=== PATIENT | female | born 1955 | race Caucasian/White ===

== ENCOUNTER 2017-06-24 15:33 | Inpatient (IN) | payer OTHER ==
--- NOTE | 2017-06-24 16:40 | EDPHY ---
H & P Time Seen by Provider: 06/24/17 16:26 HPI/ROS: CHIEF COMPLAINT: Left flank pain, nausea, vomiting HISTORY OF PRESENT ILLNESS: Patient is a 61-year-old female presents emergency department with left flank pain, nausea and vomiting. Patient states that she has had increasing left flank pain and went to [facility] or this morning. There she was diagnosed with a 6 mm left ureteral stone. She was discharged with a prescription of Flomax. She states that she was told "there is nothing more we can do"prior to her discharge. She still has significant pain. She states she is unable to keep any liquids or medicines down due to her nausea and vomiting. She denies fevers or chills. No dysuria frequency. REVIEW OF SYSTEMS: My complete review of systems is negative except as mentioned in the HPI. Past Medical/Surgical History: Includes fibromyalgia, back problems, coronary artery disease, hypertension Past surgical history: Denies Social history: Patient does not smoke Smoking Status: Never smoked Physical Exam: 36.8, 125/92, 80, 16, 95% on room air GENERAL: Moderate acute distress, alert. HEENT: Eyes normal to inspection, normal pharynx, no signs of dehydration. NECK: No thyromegaly, no lymphadenopathy, supple. RESPIRATORY: Clear to auscultation bilaterally, no rales, rhonchi or wheezing. CVS: Regular rate and rhythm, no rubs, murmurs, or gallops. ABDOMEN: Soft, nontender, nondistended, no organomegaly. BACK: Normal to inspection, no CVA tenderness. SKIN: Normal color, no rash, warm, dry. No pallor. EXTREMITIES: No pedal edema, no calf tenderness, no Homans sign or cords, no joint swelling. NEURO/PSYCH: Alert and oriented x3, normal mood and affect, normal motor sensory exam. No obvious cranial nerve deficit. Constitutional: Initial Vital Signs Temperature (C) 36.8 C 06/24/17 15:49 Heart Rate 88 06/24/17 15:49 Respiratory Rate 16 06/24/17 15:49 Blood Pressure 125/92 H 06/24/17 15:49 O2 Sat (%) 95 06/24/17 15:49 O2 Delivery Mode Nasal Cannula O2 (L/minute) 2 Allergies/Adverse Reactions: amoxicillin Allergy (Verified 06/24/17 15:48) atorvastatin [From Lipitor] Allergy (Verified 06/24/17 15:48) sertraline [From Zoloft] Allergy (Verified 06/24/17 15:47) Sulfa (Sulfonamide Antibiotics) Allergy (Verified 06/24/17 15:47) xanax Allergy (Uncoded 06/24/17 15:47) Home Medications: Medication Instructions Recorded Acetaminophen [Tylenol 325mg (*)] 325 - 650 mg PO Q6 PRN 06/24/17 Ascorbic Acid [Vitamin C 500 mg 500 mg PO DAILY 06/24/17 (*)] Atorvastatin Calcium [Lipitor 10 10 mg PO WESA 06/24/17 mg (*)] Ezetimibe [Zetia 10 MG (*)] 10 mg PO HS 06/24/17 Herbals/Supplements -Info Only 1 ea PO DAILY 06/24/17 Ibuprofen [Motrin (*)] 200 - 600 mg PO Q6H PRN 06/24/17 Lisinopril [Zestril 5 mg (*)] 5 mg PO BID 06/24/17 Medical Decision Making ED Course/Re-evaluation: In the emergency department I discussed possible etiologies with the patient and her . I reviewed the patient's medical record that they brought with them from [facility]. Her notable findings: CT of the abdomen pelvis: The patient has a 6 x 7 mm left ureteral stone with mild hydronephrosis. Patient's white count was 10. Hematocrit was 41. Platelets were 212. Patient' s chemistry panel showed sodium 136, potassium 3.2, chloride 99, bicarb 24, BUN 13, creatinine 1.01, glucose 110. Patient's LFTs showed AST of 47 and ALT of 35. T bili 0.8. Alk phos 83. Her UA showed positive red cells. I discussed case with Dr. Maldonado from urology. She will consult on the patient. - Data Points Medications Given: Discontinued Medications Fentanyl (Sublimaze) 100 mcg IVP EDNOW ONE Stop: 06/24/17 16:48 Last Admin: 06/24/17 17:03 Dose: 100 mcg Sodium Chloride (Ns) 1,000 mls @ 0 mls/hr IV EDNOW ONE; Wide Open PRN Reason: Protocol Stop: 06/24/17 16:48 Last Admin: 06/24/17 17:03 Dose: 1,000 mls Promethazine HCl (Phenergan) 12.5 mg IVP EDNOW ONE Stop: 06/24/17 16:48 Last Admin: 06/24/17 17:03 Dose: 12.5 mg Tamsulosin HCl (Flomax) 0.4 mg PO EDNOW ONE Stop: 06/24/17 16:48 Last Admin: 06/24/17 17:04 Dose: 0.4 mg Departure - Departure Disposition: [facility] Acute Clinical Impression: Ureterolithiasis, Renal colic on left side Condition: Good
[2017-06-24] MEDS ORDERED: NS 1,000 ML IV ONE (16:47)
[2017-06-24] MEDS ORDERED: fentaNYL 100 MCG/2 ML INJ IVP ONE (16:47)
[2017-06-24] MEDS ORDERED: TAMSULOSIN HCL 0.4 MG CAP PO ONE (16:47)
[2017-06-24] MEDS ORDERED: PROMETHAZINE HCL 25 MG/ML INJ IVP ONE (16:47)
[2017-06-24] MEDS ORDERED: PROMETHAZINE HCL 25 MG TAB PO PRN (17:42)
[2017-06-24] MEDS ORDERED: PROMETHAZINE HCL 25 MG/ML INJ IVP PRN (17:42)
[2017-06-24] MEDS ORDERED: ONDANSETRON DISINTEGRATING 4 MG TAB PO PRN (17:42)
[2017-06-24] MEDS ORDERED: ONDANSETRON 4 MG/2 ML VIAL IVP PRN (17:42)
[2017-06-24] MEDS ORDERED: NS 1,000 ML IV SCH (17:45)
--- NOTE | 2017-06-24 18:49 | PDGENHP ---
History and Physical - Chief Complaint Acute vomiting - History of Present Illness Primary care provider: Dr. Lela Louie HPI: 61-year-old female presenting with acute vomiting characterized as dry heaves with associated nausea and pain located in the left lower abdomen, with onset of symptoms on the day of presentation and rated as an 8/10 on a pain scale. Patient reports that it occurred in the context of vomiting and diarrhea with onset approximately 3 days ago and persistent worsening thereafter. She has had poor oral intakes of solids, trying to maintain good liquid intake, and the constellation of her symptoms seems to be exacerbating her anxiety and resulting in tremulousness. The patient presented to [facility] where she was diagnosed as having a left- sided kidney stone, and she was discharged home with Flomax, ibuprofen, her regular home pain medication and outpatient Urology follow-up. The patient reports that her symptoms continued to escalate at home and she has sought reassessment. Prior to onset of symptoms, the patient had otherwise been feeling well, had not been experiencing any exertional chest pain or reduced exercise tolerance. History Information - Allergies/Home Medication List Allergies/Adverse Reactions: amoxicillin Allergy (Verified 06/24/17 15:48) atorvastatin [From Lipitor] Allergy (Verified 06/24/17 15:48) sertraline [From Zoloft] Allergy (Verified 06/24/17 15:47) Sulfa (Sulfonamide Antibiotics) Allergy (Verified 06/24/17 15:47) xanax Allergy (Uncoded 06/24/17 15:47) Home Medications: Acetaminophen [Tylenol 325mg (*)] 325 - 650 mg PO Q6 PRN 06/24/17 [Last Taken ] Ascorbic Acid [Vitamin C 500 mg (*)] 500 mg PO DAILY 06/24/17 [Last Taken Unknown] Atorvastatin Calcium [Lipitor 10 mg (*)] 10 mg PO WESA 06/24/17 [Last Taken ] Ezetimibe [Zetia 10 MG (*)] 10 mg PO HS 06/24/17 [Last Taken 06/23/17] Herbals/Supplements -Info Only 1 ea PO DAILY 06/24/17 [Last Taken Unknown] Ibuprofen [Motrin (*)] 200 - 600 mg PO Q6H PRN 06/24/17 [Last Taken 06/24/17] Lisinopril [Zestril 5 mg (*)] 5 mg PO BID 06/24/17 [Last Taken 06/24/17] I have personally reviewed and updated: family history, medical history, social history, surgical history - Past Medical History fibromyalgia (With irritable bowel syndrome), hypertension, hyperlipidemia Additional medical history: Spinal stenosis with degenerative disc disease. JERO with CPAP - Surgical History Reports: no pertinent surgical hx - Family History Additional family history: Mother and sibling with kidney stones - Social History Smoking Status: Never smoked (Second-degree smoke exposure as a child) Alcohol Use: None Drug Use: None Additional social history: Independent in her ADLs Review of Systems Review of Systems: ROS: 10pt was reviewed & negative except for what was stated in HPI & below Constitutional: Reports: chills Gastrointestinal: Reports: vomitting, abdominal pain, diarrhea, nausea Physical Exam Physical Exam: Temp Pulse Resp BP Pulse Ox 36.9 C 83 20 136/85 H 95 06/24/17 18:36 06/24/17 18:36 06/24/17 18:36 06/24/17 18:36 06/24/17 18:36 O2 (L/minute) 2 Constitutional: uncomfortable, No not in pain (Moderate) Eyes: PERRL, anicteric sclera, EOMI Ears, Nose, Mouth, Throat: hearing normal, other (Tacky mucous membranes) Cardiovascular: regular rate and rhythym, no murmur, rub, or gallop, No edema Respiratory: no respiratory distress, no rales or rhonchi, clear to auscultation Gastrointestinal: normoactive bowel sounds, tenderness (Left lower quadrant), other (No CVA tenderness), No rebound, No distension Genitourinary: no bladder fullness, other (Suprapubic bladder tenderness) Skin: No abrasion, No rash Neurologic: AAOx3, sensation intact bilaterally, No weakness Psychiatric: not encephalopathic, thought process linear, anxious, other ( Visibly shaking), No agitated Assessment & Plan Assessment: 61-year-old female presenting with acutely obstructive uropathy Plan: 1. Obstructive uropathy. Acute, evidenced by 6-7 mm stone in the left proximal ureter resulting in mild to moderate acute hydronephrosis, CT scan from [facility] 06/24/17 reviewed, CT is available to up load in our system if needed by Urology -patient has failed conservative management with oral hydration, oral pain meds and Flomax, and she has sought reassessment for uncontrollable pain and inability to tolerate oral intake -start high rate IV fluids with lactated Ringer's 200 cc an hour -strain urine -symptomatic pain control with IV and oral Dilaudid, bowel regimen ordered -Flomax -monitor creatinine level -as needed IV Toradol -discussed with Dr. Malave in the emergency department, he reports to me that he will consult with Urology and will request cystoscopy in the a.m. If the patient does not pass the stone tonight, make NPO after midnight 2. Hypokalemia. Reviewed outside records including laboratory values from [facility], patient's potassium 3.2 -replete with lactated Ringer's, repeat a.m. 3. Fibromyalgia and irritable bowel syndrome. Patient with low threshold for abdominal pain symptoms, continue treat supportively 4. Hypertension. Chronic, hold MANULE-inhibitor the patient has obstructive kidney stone 5. Obstructive sleep apnea. Chronic, continue home CPAP Diet. Regular, NPO after midnight Prophylaxis. High risk patient, SCDs, hold pharm given procedure in a.m. Code. Full per patient, is MD JOHNSON Disposition. Anticipated discharge 06/25, pending surgical intervention and stabilization of situation in a.m..
[2017-06-24] MEDS: EZETIMIBE 10 MG TAB PO SCH (20:04)
[2017-06-24] MEDS: KETOROLAC 15 MG/1 ML SDV IVP PRN (20:05)
[2017-06-24] MEDS: POTASSIUM Cl (KCl) 20 MEQ in LR 1,000 ML IV SCH (22:17)
[2017-06-25] MEDS: KETOROLAC 15 MG/1 ML SDV IVP PRN ×2 (02:39→09:15)
[2017-06-25] MEDS: HYDROmorphONE/DILAUDID 1 MG/ML INJ IVP PRN ×2 (02:41→05:34)
[2017-06-25] MEDS: HYDROmorphONE/DILAUDID 2 MG TAB PO PRN ×2 (03:49→09:32)
[2017-06-25] MEDS: POTASSIUM Cl (KCl) 20 MEQ in LR 1,000 ML IV SCH ×2 (03:49→09:24)
[2017-06-25 04:40] LABS: PLATELET COUNT 157 10^3/uL (150-400)
[2017-06-25 04:48] LABS: INR 1.13 (0.83-1.16); PROTIME(PATIENT) 14.7 SEC (12.0-15.0)
[2017-06-25] MEDS ORDERED: Herbals/Supplements -Info Only PO SCH (09:00)
[2017-06-25] MEDS ORDERED: levOFLOXACIN 500 MG/DEXTROSE 100 ML IV ONE (09:08)
[2017-06-25] MEDS: ACETAMINOPHEN 325 MG TAB PO PRN ×2 (09:31→21:05)
[2017-06-25] MEDS: ASCORBIC ACID 500 MG TAB PO SCH (09:32)
--- NOTE | 2017-06-25 11:33 | PDANEPAE ---
ANE History of Present Illness L ureteroscopy ANE Past Medical History - Cardiovascular History Hx Hypertension: Yes Hx Coronary Artery / Peripheral Vascular Disease: Yes - Pulmonary History Hx Oxygen in Use at Home: No Hx Sleep Apnea: Yes Sleep Apnea Screening Result - Last Documented: Positive - Endocrine History Hx Diabetes: No - Renal History Hx Renal Disorders: Yes - Chronic Pain History Chronic Pain: Yes (fibtomayalgia) ANE Review of Systems Review of systems is: negative Review of Systems: - Exercise capacity Exercise capacity: unable to assess ANE Patient History - Allergies Allergies/Adverse Reactions: amoxicillin Allergy (Verified 06/24/17 15:48) atorvastatin [From Lipitor] Allergy (Verified 06/24/17 15:48) sertraline [From Zoloft] Allergy (Verified 06/24/17 15:47) Sulfa (Sulfonamide Antibiotics) Allergy (Verified 06/24/17 15:47) xanax Allergy (Uncoded 06/24/17 15:47) - Home Medications Home medications: home medication list seen and reviewed Home Medications: Acetaminophen [Tylenol 325mg (*)] 325 - 650 mg PO Q6 PRN 06/24/17 [Last Taken ] Ascorbic Acid [Vitamin C 500 mg (*)] 500 mg PO DAILY 06/24/17 [Last Taken Unknown] Atorvastatin Calcium [Lipitor 10 mg (*)] 10 mg PO WESA 06/24/17 [Last Taken ] Ezetimibe [Zetia 10 MG (*)] 10 mg PO HS 06/24/17 [Last Taken 06/23/17] Herbals/Supplements -Info Only 1 ea PO DAILY 06/24/17 [Last Taken Unknown] Ibuprofen [Motrin (*)] 200 - 600 mg PO Q6H PRN 06/24/17 [Last Taken 06/24/17] Lisinopril [Zestril 5 mg (*)] 5 mg PO BID 06/24/17 [Last Taken 06/24/17] - NPO status NPO Status: no food or drink >8 hours NPO Since - Liquids (Date): 06/25/17 NPO Since - Liquids (Time): 00:00 NPO Since - Solids (Date): 06/25/17 NPO Since - Solids (Time): 00:00 - Anes Hx Anes Hx: no prior problems - Smoking Hx Smoking Status: Never smoked - Alcohol Use Alcohol Use: None - Family Anes Hx Family Anes Hx: none ANE Labs/Vital Signs - Labs Result Diagrams: 06/25/17 04:26 06/25/17 04:26 - Vital Signs Blood Pressure: 125/76 Heart Rate: 86 Respiratory Rate: 16 O2 Sat (%): 93 Height: 160.02 cm Weight: 73.346 kg ANE Physical Exam - Airway Neck exam: FROM Mallampati Score: Class 3 Mouth exam: normal dental/mouth exam - Pulmonary Pulmonary: no respiratory distress - Cardiovascular Cardiovascular: regular rate and rhythym - ASA Status ASA Status: III ANE Anesthesia Plan Anesthesia Plan: GA w LMA
[2017-06-25] MEDS ORDERED: SENNOSIDES/DOCUSATE SODIUM TAB PO PRN (11:40)
[2017-06-25] MEDS ORDERED: OXYCODONE/APAP 5/325 TAB PO PRN (11:40)
[2017-06-25] MEDS ORDERED: TAMSULOSIN HCL 0.4 MG CAP PO SCH ×2 (11:45→21:00)
[2017-06-25] MEDS ORDERED: IOPAMIDOL (ISOVUE-M 300) 15 ML VIAL ONE (11:58)
[2017-06-25] MEDS ORDERED: LIDOCAINE 2% JELLY 20 ML (UROJECT) ONE (11:58)
[2017-06-25] MEDS ORDERED: OPIUM/BELLADONNA ALKALO SUPP PR ONE (12:04)
--- NOTE | 2017-06-25 12:09 | PDCONSULT ---
Bilingual Spanish Inbound Sales Note: RFC L obs ureteral stone HPI 61F w fibromyalgia, HTN, HLD presents w nausea/emesis/left flank pain for 2 days , anorexia. CT at [facility] - I personally reviewed - has contrast but clearly left proximal ureteral stone, associated hydro, 6mm. DC from [facility] ER yesterday w instructions to follow up w urology, but sx above persisted. Admitted overnight w good nausea/pain control on meds. Desires intervention. Concerned about posto pain. Asks about ESWL. ROS 10pt was reviewed & negative except for what was stated in HPI. - Past Medical History fibromyalgia (With irritable bowel syndrome), hypertension, hyperlipidemia Additional medical history: Spinal stenosis with degenerative disc disease. JERO with CPAP - Surgical History Reports: no pertinent surgical hx - Family History Additional family history: Mother and sibling with kidney stones - Social History Smoking Status: Never smoked (Second-degree smoke exposure as a child) Alcohol Use: None Drug Use: None Additional social history: Independent in her ADLs PE AFVSS Gen NAD A*O CV regular Lungs normal effort Abd soft Ext Warm Skin normal, not diaphoretic Labs reviewed - UA from [facility] normal, without sign of infection. Serum WBC normal, Serum Cr normal. A/P Left proximal stone, symptomatic, desires intervention. Discussed laser lithotripsy vs stent today and ESWL later. She does not want stent longer than necessary and chooses laser lithotripsy. Discussed risks of bleeding, infection, pain, stent discomfort, need for short term lam, small risk of inability to gain access to stone which would then result in subsequent procedures, injury to surrounding tissues including urethra , ureter, kidney, bladder. She understood the benefit of stone treatment outweight any risks and agrees to proceed. Consent received. Levaquin abx started.
[2017-06-25] MEDS ORDERED: MIDAZOLAM 2 MG/2 ML VIAL IVP ONE (12:14)
[2017-06-25] MEDS ORDERED: MIDAZOLAM 2 MG/2 ML VIAL ONE (12:18)
[2017-06-25] MEDS ORDERED: DEXAMETHASONE 4 MG/ML VIAL ONE (12:24)
[2017-06-25] MEDS ORDERED: LIDOCAINE 2% 100 MG/5 ML SYR ONE (12:24)
[2017-06-25] MEDS ORDERED: ONDANSETRON 4 MG/2 ML VIAL ONE (12:24)
[2017-06-25] MEDS ORDERED: fentaNYL 100 MCG/2 ML INJ ONE (12:24)
[2017-06-25] MEDS ORDERED: PROPOFOL 200 MG/20 ML VIAL ONE (12:24)
[2017-06-25] MEDS ORDERED: fentaNYL 100 MCG/2 ML INJ IVP PRN (12:46)
[2017-06-25] MEDS ORDERED: PROMETHAZINE HCL 25 MG/ML INJ IVP PRN (12:46)
[2017-06-25] MEDS ORDERED: ACETAMINOPHEN 500 MG TAB PO PRN (12:46)
[2017-06-25] MEDS ORDERED: MEPERIDINE 25 MG/ML SYR IVP PRN (12:46)
[2017-06-25] MEDS ORDERED: ONDANSETRON 4 MG/2 ML VIAL IVP PRN (12:46)
[2017-06-25] MEDS ORDERED: NALOXONE HCL 0.4 MG/ML INJ IVP PRN (12:46)
[2017-06-25] MEDS ORDERED: DEXAMETHASONE 4 MG/ML VIAL IVP PRN (12:46)
--- NOTE | 2017-06-25 12:48 | POSTANESTH ---
Post Anesthetic Evaluation Cardiovascular Status: Similar to Pre-Op Cond Respiratory Status: Similar to Pre-op Cond. Level of Consciousness/Mental Status: Can Participate in Eval, Moderately Sleepy Pain Control: Adequate, Prn Tx Ordered Nausea/Vomiting Control: Adequate, Prn Tx Ordered Complications Possibly Related to Anesthesia: None Noted
[2017-06-25] MEDS ORDERED: PHENYLEPHRINE HCL 100 MCG/ML SYR ONE (13:12)
--- NOTE | 2017-06-25 13:55 | HOSPPROG ---
Hospitalist Progress Note Assessment/Plan: Patient patient is a 61-year-old female who presented the emergency room with abdominal pain, nausea, and dry heaves. She was recently seen at [facility]. At that time she was diagnosed of having a left kidney stone. She was discharged home with treatment and told to follow up. But her symptoms worsened she came to the emergency room for further evaluation. * left kidney stone in the proximal ureter -patient has mild to moderate hydronephrosis -she has felt conservative management -appreciate Dr Maldonado -she is status post left laser stone ablation. Because of the stenotic nature of the left ureter not all the stone was removed. She will need follow-up with the urologist in approximately week and half * small bladder tumor -this was an incidental finding during this procedure, awaiting pathology * significant nausea -dry heaving after procedure -getting antiemetics * hypokalemia -stable * Fibromyalgia and irritable bowel syndrome -no complaints * Hypertension. Chronic, hold MANUEL-inhibitor. * Obstructive sleep apnea. Chronic, continue home CPAP *Plan: patient is unable to take in adequate fluids, hydration or food at this time. She will require another midnight stay. She will likely be ready for dc in the morning. Reviewed her plan of care with her , Roberto. Reviewed her care w Dr Melyssa Maldonado. Subjective: [place] said pain on left side is better, but is very nauseous. Objective: Vital Signs Temp Pulse Resp BP Pulse Ox 36.8 C 86 16 125/76 H 93 06/25/17 12:07 06/25/17 12:14 06/25/17 12:14 06/25/17 12:14 06/25/17 12:14 Laboratory Results 06/25/17 04:26 06/25/17 04:26 06/24/17 06/25/17 06/26/17 05:59 05:59 05:59 Intake Total 1000 Output Total 950 Balance 50 PT 14.7 SEC (12.0-15.0) 06/25/17 04:26 INR 1.13 (0.83-1.16) 06/25/17 04:26 - Physical Exam Constitutional: not in pain Eyes: PERRL Ears, Nose, Mouth, Throat: hearing normal Cardiovascular: regular rate and rhythym Respiratory: no respiratory distress Gastrointestinal: normoactive bowel sounds Skin: warm, No normal color (pale) Musculoskeletal: full muscle strength Neurologic: other (just up from procedure, answers questions appropriately) Psychiatric: interacting appropriately ICD10 Worksheet Patient Problems: Problems Problem Status Onset Renal colic on left side Acute Ureterolithiasis Acute
--- NOTE | 2017-06-25 14:53 | POSTOPPROG ---
Post Op Note Date of Operation: 06/25/17 Surgeon: Melyssa Maldonado Ingredient Mixer: None Anesthesia: GET(General Endotracheal) Pre-op Diagnosis: left ureteral stone Post-op Diagnosis: left ureteral stone, bladder tumor Indication: symptomatic left ureteral stone Procedure: cysto, TURBT, left URS, laser, stent Findings: small bladder tumor, left UPJ stenosis, left stone Inf/Abcess present in the surg proc area at time of surgery?: No Depth: Organ Space (urinray) EBL: Minimal Complications: none, patient tolerated well
--- NOTE | 2017-06-25 15:50 | PDMN ---
Medical Necessity Medical necessity: C/M review: est. > 2 MN LOS for eval and TX of acute left kidney stone in the proximal ureter, mild to moderate hydronephrosis, small bladder tumor incidental finding during 06/25/2017 surgical procedure - pathology results pending, significant postop nausea, dry heaving postop, inability to tolerate adequate oral fluids, food, hydration postop, hypokalemia - stable requiring 06/25/2016 surgery - left kidney stone laser ablation, because of the stenotic nature of the left ureter, not all the stone was removed , ongoing IV fluids, IV antiemetics, continue home CPAP, comorbid fibromyalgia, hypertension, chronic obstructive sleep apnea on home CPAP per 06/25/2016 Hospitalist progress note.
[2017-06-25] MEDS: ATORVASTATIN CALCIUM 10 MG TAB PO SCH ×2 (17:13→20:26)
[2017-06-25] MEDS: EZETIMIBE 10 MG TAB PO SCH (20:26)
[2017-06-25] MEDS: PHENAZOPYRIDINE HCL 200 MG TAB PO PRN (20:50)
[2017-06-26] MEDS: ACETAMINOPHEN 325 MG TAB PO PRN (03:44)
--- NOTE | 2017-06-26 04:54 | GOP ---
[f rep st] OPERATIVE REPORT DATE OF OPERATION: 06/25/2017 SURGEON: Melyssa Maldonado MD PREOPERATIVE DIAGNOSIS: Left ureteral stone. POSTOPERATIVE DIAGNOSIS: 1. Left ureteral stone. 2. Bladder tumor. 3. Ureteropelvic junction stricture. PROCEDURE PERFORMED: 1. A cystoscopy. 2. A transurethral resection of bladder tumor. 3. Left ureteroscopy. 4. Laser lithotripsy. 5. Stent. FINDINGS: A small papillary bladder tumor, just right of the right ureteral orifice, left ureteropel beatriz junction stenosis, and a left ureteral stone. ESTIMATED BLOOD LOSS: Minimal. INDICATIONS: The patient presented to the [facility] ER after being seen at [facility] for a symptomatic left ureteral stone. She was discharged from [facility], but her symptoms persisted and she presented to [facility] for management. I reviewed the CT scan. There was a 6 mm left ureteropelvic junction obstruction with associated hydronephrosis. I discussed that the rationale, risks, and benefits of the procedure included bleeding, infection, need for subsequent procedures, need for stent, and inability to gain access to the stone. She understood these risks a nd agreed to proceed. DESCRIPTION OF PROCEDURE: The patient was taken back to the operating room, placed on the operating table in a supine position. General anesthesia induced without complication. Time-out performed and core measures satisfied including placement of a Dulce Hugger, SCDs, and administration of Levaquin a ntibiotics. She was brought to the end of the table, placed in a dorsal lithotomy position. All pre ssure points padded. Genitalia draped and prepped in a standard surgical fashion with Betadine. A r igid cystoscope easily cannulated her urethral meatus and was advanced atraumatically into the bladde r. [place] cystoscopy performed and there was a 3 mm bladder tumor papillary just lateral right to the r ight ureteral orifice, not involving the ureteral orifice. It was papillary. It looked like it was on a very small stalk and looked low-grade. The trigone also had some redness to it that looked abno rmal, but the remaining bladder looked normal without any further lesions, cellules, trabeculations. I felt at this moment we would biopsy the abnormal area of the trigone and resect that little tumor that was papillary. I assembled the Storz resectoscope and with 1 swipe, was able to resect that pap illary bladder tumor on the right, and then I took another resection of that abnormal trigone that wa s right in between the left and right ureteral orifices. I sent these separately and I used cautery to maintain hemostasis, but there was very little bleeding, if any, with these little resections. I next moved on to remove that resectoscope and then assembled a cystoscope, and advanced the cystosc ope into the bladder and passed two 0.035 Glidewires without difficulty in the left collecting system . I then advanced a 12/14-Portuguese ureteral access sheath over 1 of the wires. It advanced not all th e way into the ureteropelvic junction, but stopped before that. I could not advance it any further, so at this point, I had a safety wire in place and an access sheath, and I passed a flexible videosco pe through the sheath and to the ureteropelvic junction. It was very narrow, the UPJ, and I was not able to traverse this with a scope, but I felt I would try to go over a wire to make it safely and so , I passed a wire through the ureteroscope and into the renal pelvis with fluoroscopic guidance, and I was able to advance the scope through this narrowing into the kidney. I found the stone and I lase red into several fragments, and I then decided trying basket from these fragments, and there was a cl ot that I was removing with the basket, and I pulled this clot out to go through the access sheath, a nd I noted that the ureteropelvic junction area looked very edematous and at this point, I felt that going past this area repeatedly to basket out stone was not a harrell idea, as it could lead to injury o f the ureteropelvic junction area, considering it was so narrow. Again, my scope had trouble going o kamilah this area when I was doing antegrade removal of that small blood clot. At this point, I had lase red the stone in several pieces. I felt I would then now place a stent and let that area that was ne ar the ureteropelvic junction dilate passively to make it easier for next time to basket out the ston e safely. At this point, I then removed the access sheath and the scope together, leaving my safety wire in place. I then advanced a 6-Portuguese, 24 cm double-J stent over the wire with fluoroscopic guid ance and cystoscopic guidance by back-loading that wire and then advancing the start with direct visi on. Her bladder was then emptied and lidocaine jelly and then a belladonna and opium suppository wer e placed per rectum. She was awakened from anesthesia and transferred to PACU in good condition. INDICATION FOR PROCEDURE: A symptomatic left ureteral stone. COMPLICATIONS: None. The patient tolerated the procedure well. /[id number]/MODL
[2017-06-26 05:08] LABS: PLATELET COUNT 172 10^3/uL (150-400)
[2017-06-26] MEDS: KETOROLAC 15 MG/1 ML SDV IVP PRN (05:24)
[2017-06-26] MEDS: PHENAZOPYRIDINE HCL 200 MG TAB PO PRN (05:45)
--- NOTE | 2017-06-26 08:34 | HOSPPROG ---
Hospitalist Progress Note Assessment/Plan: Patient patient is a 61-year-old female who presented the emergency room with abdominal pain, nausea, and dry heaves. She was recently seen at [facility]. At that time she was diagnosed of having a left kidney stone. She was discharged home with treatment and told to follow up. But her symptoms worsened she came to the emergency room for further evaluation. * left kidney stone in the proximal ureter -patient has mild to moderate hydronephrosis -appreciate Dr Maldonado -she is status post left laser stone ablation. Because of the stenotic nature of the left ureter not all the stone was removed. She will need follow-up with the urologist in approximately week and half * small bladder tumor -this was an incidental finding during this procedure, awaiting pathology * significant nausea -resolved * hypokalemia -stable * Fibromyalgia and irritable bowel syndrome -no complaints * Hypertension. Chronic, hold MANUEL-inhibitor. * Obstructive sleep apnea. Chronic, continue home CPAP *Plan: dc home Subjective: [place] is feeling well, has some frequency w urination. Objective: Vital Signs Temp Pulse Resp BP Pulse Ox 36.6 C 74 16 116/75 97 06/26/17 03:43 06/26/17 03:43 06/26/17 03:43 06/26/17 03:43 06/26/17 03:43 Laboratory Results 06/26/17 04:17 06/25/17 16:16 06/25/17 06/26/17 06/27/17 05:59 05:59 05:59 Intake Total 1090 Output Total 1600 Balance -510 PT 14.7 SEC (12.0-15.0) 06/25/17 04:26 INR 1.13 (0.83-1.16) 06/25/17 04:26 - Physical Exam Constitutional: no apparent distress, appears nourished, not in pain Eyes: PERRL Ears, Nose, Mouth, Throat: hearing normal Respiratory: no respiratory distress Skin: warm Musculoskeletal: full muscle strength Neurologic: AAOx3 Psychiatric: interacting appropriately, not anxious ICD10 Worksheet Patient Problems: Problems Problem Status Onset Renal colic on left side Acute Ureterolithiasis Acute
[2017-06-26 08:40] VITALS: BP 99/64; PULSE 71; RESP 14; TEMP 98.2; O2SAT 93
[2017-06-26] MEDS ORDERED: OXYBUTYNIN 5 MG EXT REL TAB PO SCH (09:00)
[2017-06-26] MEDS: ASCORBIC ACID 500 MG TAB PO SCH (10:22)
--- NOTE | 2017-06-26 14:36 | GDS ---
[f rep st] DISCHARGE SUMMARY DISCHARGE DIAGNOSES: 1. Left ureteral stone with associated moderate hydronephrosis. 2. Bladder tumor. 3. Ureteropelvic junction stricture. 4. Nausea. 5. Hypokalemia. 6. Fibromyalgia and irritable bowel syndrome. 7. Hypertension. 8. Obstructive sleep apnea. CONSULTATION: Dr. Melyssa Maldonado, Urology. Briefly, the patient is a 61-year-old female who presented to the emergency room with abdominal pain, nausea, and dry heaves. She was recently seen at [facility]. At that time, she was diagnosed with left kidney stone. She was discharged home with treatment and told to follow up if her symptoms worsened. She was seen and evaluated by Dr. Maldonado and had a cystoscopy, which noted that she had a left ureteral stone, as well as a bladder tumor. She had a significant junction stricture at the UV area. HOSPITAL COURSE PER PROBLEM: 1. Left ureteral stone. She is status post stent placement, as well as ablation. She will need further followup with the urologist. 2. Small bladder tumor, further followup with the urologist. This is an incidental finding during this procedure. Pathology is pending. 3. Ureteropelvic junction stricture. She has a stent in place. She will follow up with the urologist for removal and further evaluation of the retained stone. 4. Nausea, resolved. 5. Hypokalemia, stable. 6. Fibromyalgia and interval bowel syndrome, stable. 7. Hypertension, stable. 8. Obstructive sleep apnea. She is on CPAP at home. DISCHARGE CONDITION: Stable. Blood pressure is 99/64, heart rate is 71, respiratory rate is 14, O2 sats on room air are 93%. Temperature 36.8 Celsius. MEDICATIONS AT DISCHARGE: Please see the EMR. DISCHARGE INSTRUCTIONS: 1. To follow up with Urology and make an appointment for followup care. 2. If she develops fever, chills, any shortness of breath or increased burning with urination, to call her PCP. She may need treatment. 3. Recommended she hold her lisinopril for the next 2 days until her blood pressure improves. Greater than 30 minutes discharging and coordinating her care. /[id number]/MODL MTDD
== END 2017-06-26 10:00 | disposition home or self-care (01) | DRG 669 ==
LOC: F3N 18:30 → OBSVTOIN 06-25 15:20
PROVIDERS: ADMIT Internal Medicine; ATTEND Internal Medicine
PROC: 0TC78ZZ Extirpation of Matter from Left Ureter, Via Natural or Artificial Opening Endoscopic (ICD-10-PCS; principal; 2017-06-25 12:00)
PROC: 0T778DZ Dilation of Left Ureter with Intraluminal Device, Via Natural or Artificial Opening Endoscopic (ICD-10-PCS; principal; 2017-06-25 12:00)
PROC: 0TBB8ZX Excision of Bladder, Via Natural or Artificial Opening Endoscopic, Diagnostic (ICD-10-PCS; principal; 2017-06-25 12:00)
DX: N13.2 Hydronephrosis with renal and ureteral calculous obstruction (principal); D41.4 Neoplasm of uncertain behavior of bladder; N13.0 Hydronephrosis with ureteropelvic junction obstruction; E87.6 Hypokalemia; M79.7 Fibromyalgia; K58.9 Irritable bowel syndrome, unspecified; I10 Essential (primary) hypertension; G47.33 Obstructive sleep apnea (adult) (pediatric); E78.5 Hyperlipidemia, unspecified
CPT/HCPCS: 96374; C1758; C1769; C1894; C2625; J1100; J1170; J1885; J1956; J2001; J2250; J2370; J2405; J2550; J2704; J3010; J3480; Q9967